=== PATIENT | female | born 1945 | race Caucasian/White ===

== ENCOUNTER 2023-09-20 14:39 | Outpatient (CLI) | payer MEDICARE, SELFPAY | END 2023-09-20 14:40 | disposition home or self-care (01) | LOC: INJ CL 14:46 | PROVIDERS: PCP Family Medicine; Visit Provider Family Medicine | DX: M17.12 Unilateral primary osteoarthritis, left knee (principal); M25.562 Pain in left knee | CPT/HCPCS: 64454 ==

== ENCOUNTER 2023-11-01 11:36 | Outpatient (CLI) | payer MEDICARE, SELFPAY | END 2023-11-01 11:37 | disposition home or self-care (01) | PROVIDERS: PCP Family Medicine; Visit Provider Family Medicine | DX: M17.12 Unilateral primary osteoarthritis, left knee (principal); M25.562 Pain in left knee; G89.29 Other chronic pain | CPT/HCPCS: 64624; J2250; J3010 ==

== ENCOUNTER 2025-07-09 14:06 | Outpatient (CLI) | payer MEDICARE, BC, SELFPAY | END 2025-07-09 14:07 | disposition home or self-care (01) | LOC: INJ CL 14:08 | PROVIDERS: PCP Family Medicine; Visit Provider Family Medicine | DX: M17.11 Unilateral primary osteoarthritis, right knee (principal); M25.561 Pain in right knee | CPT/HCPCS: 64454 ==

== ENCOUNTER 2025-09-03 11:53 | Outpatient (CLI) | payer MEDICARE, BC, SELFPAY | END 2025-09-03 11:54 | disposition home or self-care (01) | LOC: INJ CL 11:54 | PROVIDERS: PCP Family Medicine; Visit Provider Family Medicine | DX: M17.11 Unilateral primary osteoarthritis, right knee (principal); M25.561 Pain in right knee; G89.29 Other chronic pain | CPT/HCPCS: 64624; J2250; J3010 ==